=== PATIENT | male | born 1985 | race Caucasian/White ===

== ENCOUNTER 2021-03-23 09:50 | Emergency (ER) | payer OTHER ==
[~2021-03-23] VITALS: Ht 188 cm; Wt 79.4 kg
[2021-03-23] MEDS ORDERED: DAILY VITAMIN1 EAC6 PO (10:03)
[2021-03-23] MEDS ORDERED: CEPHALEXIN500 MG PO (10:29)
[2021-03-23 10:43] VITALS: BP 129/82
== END 2021-03-23 10:43 | disposition home or self-care (01) ==
LOC: M.ERS 09:50
DX: S61.215A Laceration without foreign body of left ring finger without damage to nail, initial encounter (principal); W26.8XXA Contact with other sharp object(s), not elsewhere classified, initial encounter; Y93.89 Activity, other specified; Y92.89 Other specified places as the place of occurrence of the external cause; Y99.8 Other external cause status